=== PATIENT | male | born 1950 | race Caucasian/White ===

== ENCOUNTER → 2021-11-24 | Outpatient (CLI) | payer OTHER ==
[~2021-11-24] VITALS: Ht 170.2 cm; Wt 69.9 kg
[~2021-11-24] MED LIST: ASA81BEC PO; LIPITOR40 MG PO
[2021-11-24 08:32] VITALS: BP 142/83
--- NOTE | 2021-11-24 09:50 | EKG ---
[address] [place] [address] ELECTROCARDIOGRAM REPORT Name: JOSEPH THORNTON Room #: REG [facility] [id number] Admission: 11/24/21 Attend Phys: Denny Odom MD, Discharge: Date of : 54 Report #: [id number] [facility] Test Date: 2021-11-24 Test Time: 09:18:15 Pat Name: JOSEPH THORNTON Department: Room: Gender: Pruner: [facility] : 1950 Requested By: Denny Odom Order Number: [id number] : Elbert Bates Measurements Intervals [place] Rate: 65 P: 39 AK: 209 QRS: -7 QRSD: 102 T: 49 QT: 412 QTc: 429 Interpretive Statements Sinus rhythm RSR' in V1 or V2, right VCD or RVH No previous ECG available for comparison Electronically Signed On 11-24-2021 9:50:02 [employer] by Elbert Bates [email or web address] <ELECTRONICALLY SIGNED> By: Elbert Bates MD, [facility] 11/24/21 0950 7 Elbert Bates MD, FACMalena /EPI
--- NOTE | 2021-11-24 18:02 | CATHLAB ---
[facility] [place] [address] [place] [address] INVASIVE PROCEDURE REPORT Name: JOSEPH THORNTON Room #: REG BENNY Artem#: [id number] Admission: 11/24/21 Attend Phys: Denny Odom MD, Discharge: Date of : 54 Report #: [id number] THIS REPORT FOR: cc: Adolph Vigil Timothy J. Mancuso,Denny Carbajal MD [facility] ~ APPROVED REPORT Study performed: 11/24/2021 08:38:34 Patient Details Patient Status: Out-Patient Room #: The patient is a 71 year-old male Event Personnel Lauren Lee Monitor, So Aguila RTR Monitor, Raina Bryant RTR, Lei Ozuna Gerald Bistro Server, Randell Lewis RN aquatics manager Performed Art Access - R femoral artery* Left Heart Cath w/or w/o Coronaries 1920266 C Hemostasis w/ Mynx 24771 Initial Mod Sed Same Phys/QHP Gr5y 936999 Indication Chest pain Procedure Narrative The Right Groin^ was infiltrated with 1% Lidocaine subcutaneous anesthesia. A PINNACLE 6FR Sheath #[id number] sheath was inserted into the RFA^. Coronary angiography was performed using coronary diagnostic catheters. The right coronary system was accessed and visualized with a jr4 catheter. The left coronary system was accessed and visualized with a jl4 catheter. The left ventricle was accessed and visualized with a str pig catheter. Left ventriculogram was performed in 30 degree projection. Intraoperative Conscious Sedation Sedation start time: 918 Case end Time: 947 Fentanyl 100 mcg Versed 2 mg Fluoro Time: 1.20 minutes Dose: DAP 1674.00 cGycm2 172 mGy [facility] [address] [place] [address] INVASIVE PROCEDURE REPORT Name: JOSEPH THORNTON Room #: GRAEME Mcgill#: [id number] Admission: 11/24/21 Attend Phys: Denny Odom, Discharge: Date of : 54 Report #: [id number] Contrast Type and Amount: Omnipaque 100 ml Hemodynamics The aortic pressure is 132/69 mmHg with a mean of 90 mmHg. The left ventricular pressure is 132/5 mmHg with a mean of mmHg. The left ventricular end diastolic pressure is 17 mmHg. Conclusion #1 Normal left ventricular size and systolic function EF 60%. #2 abdominal aortogram shows mild tortuosity but no occlusive disease or aneurysm. Brisk flow into the iliac system. #3 the left main is short and free of disease giving rise to LAD and circumflex. #4 the LAD extends to the apex is minimal irregularity no occlusive disease. #5 circumflex OM is a larger system but nondominant widely patent. #6 large dominant right coronary artery with minimal mid vessel irregularity filling the PDA ANUPAMA briskly. No occlusive disease. Recommendations plan: Continue aggressive risk factor modification there is no indication for coronary intervention. <ELECTRONICALLY SIGNED> By: Denny Odom MD, FACC 11/24/211800 00 00 Denny Odom MD, FAC /INF
== END | disposition home or self-care (01) ==
LOC: CATH 07:33
PROVIDERS: ATTEND Internal Medicine Cardiovascular Disease
DX: R07.9 Chest pain, unspecified (principal); I25.10 Atherosclerotic heart disease of native coronary artery without angina pectoris; R94.39 Abnormal result of other cardiovascular function study; Z98.890 Other specified postprocedural states; Z79.899 Other long term (current) drug therapy; Z79.82 Long term (current) use of aspirin